=== PATIENT | female | born 1985 | race Caucasian/White ===

== ENCOUNTER 2019-10-26 15:48 | Emergency (ER) | payer BC ==
[~2019-10-26] VITALS: Ht 160 cm; Wt 101.6 kg
[2019-10-26 16:00] VITALS: Ht 160 cm; Wt 101.6 kg
[2019-10-26 17:21] LABS: BASOPHIL % 0.4 % (0-2); PLATELET COUNT 325 x10^3mcL (130-400); RED CELL DISTRIBUTION WIDTH 13.6 % (11.5-14.5)
[2019-10-26 17:58] LABS: microscopic required? YES; urine erythrocyte TRACE (NEGATIVE)
[2019-10-26 20:15] VITALS: BP 146/76
== END 2019-10-26 20:15 | disposition home or self-care (01) ==
LOC: ED 15:48
DX: O36.4XX0 Maternal care for intrauterine death, not applicable or unspecified (principal); Z3A.17 17 weeks gestation of pregnancy
CPT/HCPCS: 36415; 87491; 87591